=== PATIENT | female | born 1980 | race Caucasian/White ===

== ENCOUNTER → 2016-07-16 | Outpatient (CLI) | payer OTHER ==
[~2016-07-16] MED LIST: IBUP800 PO; OXYC-68 PO; PREN0.01; PRIL20TA2 PO
== END ==
LOC: HPND 09:54
PROVIDERS: ATTEND Obstetrics & Gynecology
DX: O09.522 Supervision of elderly multigravida, second trimester (principal); Z34.02 Encounter for supervision of normal first pregnancy, second trimester; Z36 Encounter for antenatal screening of mother; Z3A.18 18 weeks gestation of pregnancy
CPT/HCPCS: 76811

== ENCOUNTER 2016-11-21 09:08 | Inpatient (IN) | payer OTHER ==
[~2016-11-21] VITALS: Ht 162.6 cm; Wt 79.4 kg
[2016-12-09] VITALS (13 sets, daily range): BP systolic 98–122; BP diastolic 54–74; PULSE 59–96; RESP 16–18; TEMP 97.5–98.5; O2SAT 95–98
[2016-12-09 06:22] LABS: AUTOMATED NEUTROPHIL # 7.1 TH/MM3 (1.8-7.7); BASOPHIL % 0.2 % (0.0-2.0); EOSINOPHIL # 0.1 TH/MM3 (0-0.4); EOSINOPHIL % 0.9 % (0.0-4.0); HEMATOCRIT 32.2 % (35.0-46.0); HEMO FLAGS DIFF FINAL; LYMPH % 21.4 % (9.0-44.0); LYMPHOCYTE # 2.2 TH/MM3 (1.0-4.8); MEAN CELL VOLUME 86.2 FL (80.0-100.0); MEAN CORPUSCULAR HEMOGLOBIN 28.5 PG (27.0-34.0); MONO % 8.3 % (0.0-8.0); NEUT % 69.2 % (16.0-70.0); PLATELET COUNT 258 TH/MM3 (150-450); RED BLOOD COUNT 3.74 MIL/MM3 (4.00-5.30); RED CELL DISTRIBUTION WIDTH 16.5 % (11.6-17.2); WHITE BLOOD COUNT 10.2 TH/MM3 (4.0-11.0)
[2016-12-09 06:43] LABS: BACTERIA, URINE RARE /hpf; BLOOD, URINE NEG (NEG); COMMENT (UR) CULT NOT INDICATED; CULTURE IF INDICATED CULT NOT INDICATED; GLUCOSE,URINE NEG (NEG); KETONE, URINE NEG (NEG); MUCUS URINE FEW /lpf (OCC); NITRITE,URINE NEG (NEG); SQUAMOUS EPITHELIAL CELL URINE 4 /hpf (0-5); URINE COLOR YELLOW (YELLW/STRAW)
[2016-12-09] MEDS ORDERED: ONDANSETRON HCL 4 MG/2 ML VIAL ONE (06:43)
[2016-12-09] MEDS ORDERED: KETOROLAC TROMETHAMINE 30 MG/ML (IVP) VIAL ONE (06:43)
[2016-12-09] MEDS ORDERED: OXYTOCIN 10 UNIT/ML AMP ONE (06:44)
[2016-12-09] MEDS ORDERED: CITRIC ACID-SODIUM CITRATE LIQ 30 ML UDC PO SCH (06:45)
[2016-12-09] MEDS ORDERED: LACTATED RINGER'S 1000 ML IV ONE (06:45)
[2016-12-09] MEDS ORDERED: ceFAZolin 1,000 MG/NS 100 ML IV SCH ×2 (06:45)
[2016-12-09] MEDS ORDERED: LACTATED RINGER'S 1000 ML IV SCH (06:45)
--- NOTE | 2016-12-09 07:09 | HHI.HP ---
HPI Chief Complaint for repeat CS BTL at 39 weeks Date Seen: Dec 09, 2016 Time Seen: 07:00 Travel History International Travel<30 Days: No Contact w/Intl Traveler<30Days: No Known Affected Area: No History of Present Illness HPI 36 yo with good PNC had infertility TX and due 12/16 here for repeat CS Para: 1 : 2 Last Menstrual Period: Dec 09, 2016 History Past Medical History Narrative Medical PCOS Obstetric History Obstetric History CS x1 Past Surgical History Narrative Surgical appendectomy Family History Family History: Negative Social History Alcohol Use: No Tobacco Use: No Substance Abuse: No Allergies-Medications (Allergen,Severity, Reaction): Coded Allergies: No Known Allergies (Verified , 12/09/16) Home Meds Reported Medications Multivit/Min/Fol Ac/Iron/Pren ( Vit ( Plus)) Tab 01/16/07 Discontinued Reported Medications Oxycodone W/ Acetaminophen (Oxycodone/Acetaminophen)Oxycodone 5/325 Acetaminophen Tab1-2 Tab PO Q8 PRN (PAIN) #30 TAB 12/27/13 Ibuprofen (Motrin 800 Mg Tab)800 Mg [id number] Mg PO Q8H PRN (PAIN) 12/27/13 Omeprazole Magnesium (Prilosec Otc)20 Mg Tab20 Mg PO DAILY 12/24/13 Review of Systems Except as stated in HPI: all other systems reviewed are Neg Physical Exam Vital Signs Date Time Temp Pulse Resp B/P Pulse Ox O2 Delivery O2 Flow Rate FiO2 12/09/16 06:10 95 12/09/16 06:05 91 12/09/16 05:49 91 115/74 Narrative GENERAL: Well-nourished, well-developed patient. SKIN: Warm and dry. HEAD: Normocephalic and atraumatic. EYES: No scleral icterus. No injection or drainage. ENT: No nasal drainage noted. Mucous membranes pink. Airway patent. NECK: Supple, trachea midline. No JVD. CARDIOVASCULAR: Regular rate and rhythm without murmurs, gallops, or rubs. RESPIRATORY: Breath sounds equal bilaterally. No accessory muscle use. BREASTS: Bilateral exam showed no masses , no retractions, no nipple discharge. ABDOMEN/GI: Abdomen soft, non-tender, bowel sounds present, no rebound, no guarding Gravid to [-] weeks size Fundal Height: [-] GENITOURINARY: External Genitalia: intact and normal in appearance BUS glands: [-] Cervix: [-] Dilatation: [-] Effacement: [-] Station: [-] Presentation: [-] Membranes: [intact or ruptured] Uterine Contractions: [-] FHT's: Category: [-] Baseline: [-] Reactive: [-] Variability: [-] Decels: [-] EXTREMITIES: No cyanosis or edema. BACK: Nontender without obvious deformity. No CVA tenderness. NEUROLOGICAL: Awake and alert. Motor and sensory grossly within normal limits. Five out of 5 muscle strength in all muscle groups. Normal speech. Data Data Vital Signs Reviewed: Yes Orders Code Status (12/09/16 05:43) Vital Signs (Adult) .ON ADMISSION (12/09/16 05:43) Activity Oob Ad Adrienne (12/09/16 05:43) Heart (12/09/16 05:43) Urinary Catheter Management SRAVANI.Q8H (12/09/16 05:43) ^ Preps (12/09/16 05:43) Scd / Lance / Foot Pump SRAVANI.QSHIFT (12/09/16 05:43) ^ Ultrasound For Locatio (12/09/16 05:43) Diet Npo (12/09/16 Breakfast) Type And Screen (12/09/16 05:43) Complete Blood Count With Diff (12/09/16 05:43) Urinalysis - C+S If Indicated (12/09/16 05:43) Specimen To Be Collected PRN (12/09/16 05:43) Lactated Ringer's 1000 Ml Inj (Lr 1000 M (12/09/16 06:45) Lactated Ringer's 1000 Ml Inj (Lr 1000 M (12/09/16 06:45) Citric Acid-Sodium Citrate Liq (Bicitra (12/09/16 06:45) Cefazolin Inj (Ancef Inj) (12/09/16 06:45) Ketorolac Inj (Toradol Inj) (12/09/16 06:43) Ondansetron Inj (Zofran Inj) (12/09/16 06:43) Oxytocin Inj (Pitocin Inj) (12/09/16 06:44) Labs Laboratory Tests Test 12/09/16 06:00 White Blood Count 10.2 Red Blood Count 3.74 Hemoglobin 10.7 Hematocrit 32.2 Mean Corpuscular Volume 86.2 Mean Corpuscular Hemoglobin 28.5 Mean Corpuscular Hemoglobin 33.0 Concent Red Cell Distribution Width 16.5 Platelet Count 258 Mean Platelet Volume 8.0 Neutrophils (%) (Auto) 69.2 Lymphocytes (%) (Auto) 21.4 Monocytes (%) (Auto) 8.3 Eosinophils (%) (Auto) 0.9 Basophils (%) (Auto) 0.2 Neutrophils # (Auto) 7.1 Lymphocytes # (Auto) 2.2 Monocytes # (Auto) 0.9 Eosinophils # (Auto) 0.1 Basophils # (Auto) 0.0 CBC Comment DIFF FINAL Differential Comment Urine Color YELLOW Urine Turbidity CLEAR Urine pH 7.0 Urine Specific [place] 1.009 Urine Protein NEG Urine Glucose (UA) NEG Urine Ketones NEG Urine Occult Blood NEG Urine Nitrite NEG Urine Bilirubin NEG Urine Urobilinogen LESS THAN 2.0 Urine Leukocyte Esterase NEG Urine RBC LESS THAN 1 Urine WBC 1 Urine Squamous Epithelial 4 Cells Urine Bacteria RARE Urine Mucus FEW Microscopic Urinalysis Comment CULT NOT INDICATED Blood Type A POSITIVE Antibody Screen NEGATIVE Assessment/Plan Problem List: (1) 39 weeks gestation of (2) Encounter for female sterilization procedure Plan: for CS and BTL Ranjith Zaragoza MD Dec 09, 2016 07:09
--- NOTE | 2016-12-09 08:20 | PD.OB.DELI ---
Procedure Note Section Procedure Pre Op Diagnosis: (1) 39 weeks gestation of (2) Encounter for female sterilization procedure (3) delivery delivered Post Op Diagnosis: (1) delivery delivered Performed by Ranjith Zaragoza Procedure: Repeat Low Transverse Sec, Other (BTL) Indication for delivery: Desired elective repeat Informed consent obtained: For anesthesia, For procedure Confirmed correct: Patient, Procedure, Time-out taken Anesthesia: Spinal Monitoring during procedure: Blood pressure monitoring Urinary catheter: Inserted using sterile technique, To dependent drainage Sterile preparation: Duraprep Operative Features Skin Incision: Pfannenstiel Uterine Incision: Low transverse w/knife / blunt ext Membranes Ruptured: Artificially Presentation: Occiput anterior Delivery of infant: Uneventful : Male, Single One Minute : 8 Five Minute : 9 Weight: 8# 13 oz Status of : Viable Placenta delivered: Intact Medications: Antibiotics Estimated blood loss: 500 Procedure tolerated: Well Maternal Condition: Stable Condition: Stable Ranjith Zaragoza MD Dec 09, 2016 08:20
[2016-12-09] MEDS ORDERED: MORPHINE SULFATE PF 5 MG/10 ML VIAL ONE (08:21)
[2016-12-09] MEDS ORDERED: SODIUM CHLORIDE 0.9% FLUSH 10 ML FLUSH IV FLUSH PRN (08:30)
[2016-12-09] MEDS ORDERED: OXYTOCIN 30 UNITS-500ML PREMIX 500 ML IV ONE (08:30)
[2016-12-09] MEDS ORDERED: SIMETHICONE 80 MG CHEWABLE TAB PO PRN (08:30)
[2016-12-09] MEDS ORDERED: KETOROLAC TROMETHAMINE 60 MG/2 ML (IM) VIAL IM PRN (08:30)
[2016-12-09] MEDS ORDERED: oxyCODONE/ACETAMINOPHEN 5 MG/325 MG TAB PO PRN (08:30)
[2016-12-09] MEDS ORDERED: OXYTOCIN 30 UNITS-500ML PREMIX 500 ML ONE (08:32)
[2016-12-09] MEDS ORDERED: SODIUM CHLORIDE 0.9% FLUSH 10 ML FLUSH IV FLUSH SCH (09:00)
[2016-12-09] MEDS ORDERED: EPIDURAL-DIPHENHYDRAMINE HCL 50 MG/ML VIAL IV PUSH PRN (10:15)
[2016-12-09] MEDS ORDERED: EPIDURAL-DO NOT ADMINISTER ANTICOAGULANTS PRN (10:15)
[2016-12-09] MEDS ORDERED: EPIDURAL-NALOXONE HCL 0.4 MG/ML AMP IV PRN (10:15)
[2016-12-09] MEDS ORDERED: EPIDURAL-NO SYSTEMIC NARCOTICS PRN (10:15)
[2016-12-09] MEDS ORDERED: EPIDURAL-DIPHENHYDRAMINE HCL 50 MG CAP PO PRN (10:15)
[2016-12-09] MEDS: METHYLERGONOVINE MALEATE 0.2 MG/ML VIAL IM ONE (10:15)
--- NOTE | 2016-12-09 10:20 | MP ---
cc: JHONNY ZARAGOZA M.D. DATE OF SURGERY: 12/09/2016 PROCEDURE 1. Repeat low transverse section. 2. Bilateral tubal ligation. PREOPERATIVE DIAGNOSIS 1. Desires permanent sterilization. 2. section x2. 3. 39 weeks gestation. POSTOPERATIVE DIAGNOSIS 1. Desires permanent sterilization. 2. section x2. 3. [address] Jhonny Zaragoza ESTIMATED BLOOD LOSS 500 cc FINDINGS Live male , Apgars 8 and 9, 8 pounds 13 ounces. PROCEDURE IN DETAIL After informed consent the patient was taken to the operating room where she was placed under spinal anesthesia, placed in supine position with left lateral tilt. The abdomen, perineum and vagina were prepped and draped in normal sterile fashion. A Ty catheter was placed to gravity. After adequate anesthesia was assured and a timeout was taken, a Pfannenstiel skin incision was carried sharply through the skin to the fascia. The fascia was nicked in the midline. The incision was extended laterally using Herrera scissors. The rectus muscle was dissected off the fascia with sharp and blunt dissection. The rectus muscle was . The peritoneum was entered bluntly with a finger. The incision was extended laterally using blunt traction. The uterus was noted to be midline. A bladder flap was created by dissecting the bladder off the lower uterine segment. A low transverse uterine incision was then made and carried sharply through the uterine cavity. Clear fluid was noted. The incision was extended laterally using blunt traction. A hand was placed in the uterus. The 's head was guided through the incision using fundal pressure. The 's head readily delivered. The nose and mouth were suctioned well after the was delivered. 45 seconds was delayed and then the cord was clamped and cut and the handed to pediatrics in attendance. Cord blood was collected. The placenta was delivered manually. The uterus was exteriorized and wiped free from all remaining products of conception. The uterine incision was then closed with a running locking stitch of chromic suture. Good hemostasis was achieved. Both fallopian tubes were tied bilaterally using a Rc fashion ligature. This was done without difficulty. A 1 cm segment of each loop was excised to be sent to pathology. The uterus was placed back in the abdomen and noted to be hemostatic. The peritoneum was closed with chromic suture. The fascia was closed with Vicryl suture and the skin was closed with a subcuticular stitch. Each layer was noted to be hemostatic prior to closure. The patient tolerated the procedure well. MD NICOLE Meza/JG /8:27 AM /10:15 AM
[2016-12-09] MEDS ORDERED: ONDANSETRON HCL 4 MG/2 ML VIAL IV PUSH PRN (12:15)
[2016-12-09] MEDS ORDERED: LACTATED RINGER'S 1000 ML INJ 1,000 ML IV SCH (13:17)
[2016-12-09] MEDS ORDERED: PROMETHAZINE HCL 25 MG SUPP RECTAL ONE (15:45)
[2016-12-09] MEDS: METHYLERGONOVINE MALEATE 0.2 MG TAB PO SCH (18:10)
[2016-12-09] MEDS ORDERED: OXYTOCIN 30 UNITS-500ML PREMIX 500 ML IV PRN (18:30)
[2016-12-10 00:15] VITALS: BP 109/65; PULSE 65; RESP 14; TEMP 98.3
[2016-12-10] MEDS: METHYLERGONOVINE MALEATE 0.2 MG TAB PO SCH ×3 (02:11→17:33)
[2016-12-10] MEDS: oxyCODONE/ACETAMINOPHEN 5 MG/325 MG TAB PO PRN ×4 (03:18→23:45)
[2016-12-10] MEDS: IBUPROFEN 600 MG TAB PO PRN ×4 (03:18→23:45)
[2016-12-10 04:15] VITALS: BP 106/61; PULSE 66; RESP 14; TEMP 98.3
[2016-12-10 06:16] LABS: AUTOMATED NEUTROPHIL # 9.9 TH/MM3 (1.8-7.7); BASOPHIL % 0.2 % (0.0-2.0); EOSINOPHIL % 0.3 % (0.0-4.0); HEMATOCRIT 32.4 % (35.0-46.0); HEMO FLAGS DIFF FINAL; LYMPH % 12.6 % (9.0-44.0); LYMPHOCYTE # 1.6 TH/MM3 (1.0-4.8); MEAN CELL VOLUME 86.3 FL (80.0-100.0); MEAN CORPUSCULAR HEMOGLOBIN 28.7 PG (27.0-34.0); MEAN CORPUSCULAR HGB CONC 33.2 % (32.0-36.0); MONO % 8.5 % (0.0-8.0); NEUT % 78.4 % (16.0-70.0); PLATELET COUNT 213 TH/MM3 (150-450); RED BLOOD COUNT 3.76 MIL/MM3 (4.00-5.30); RED CELL DISTRIBUTION WIDTH 16.4 % (11.6-17.2); WHITE BLOOD COUNT 12.6 TH/MM3 (4.0-11.0)
[2016-12-10 07:35] VITALS: BP 112/71; PULSE 72; RESP 18; TEMP 89
--- NOTE | 2016-12-10 09:35 | HHI.OB ---
Subjective Post Day: 1 Remarks doing well no problems, no more nausea Objective Vitals/I&O Vital Signs Date Time Temp Pulse Resp B/P Pulse Ox O2 Delivery O2 Flow Rate FiO2 12/10/16 07:35 89.0 72 18 112/71 12/10/16 04:15 98.3 66 14 106/61 12/10/16 00:15 98.3 65 14 109/65 12/09/16 19:40 98.5 12/09/16 19:40 66 16 104/60 12/09/16 18:13 73 18 103/69 12/09/16 14:25 97.5 59 18 115/70 12/09/16 10:35 97.7 70 18 122/69 Objective Remarks GENERAL: Well-nourished, well-developed patient. ABDOMEN/GI: Abdomen soft, non-tender. Fundus: Firm, non-tender at umbilicus. GENITOURINARY: Light to moderate bleeding. EXTREMITIES: No cyanosis or edema, non-tender, without signs of DVT. Medications and IVs Current Medications Medications (Trade) Dose Ordered Sig/Lynn Route Start Time Stop Time Status Last Admin (Lr 1000 ml Inj) 1,000 ml @ 150 mls/hr Q6H40M IV 12/09/16 06:45 12/09/16 07:09 (NS Flush) 2 ml BID IV FLUSH 12/09/16 09:00 (NS Flush) 2 ml UNSCH PRN IV FLUSH 12/09/16 08:30 (Mylicon Chew) 80 mg QID PRN PO 12/09/16 08:30 (Motrin) 600 mg Q6H PRN PO 12/09/16 08:30 12/10/16 03:18 (Percocet 5-325 Mg) 1 tab Q4H PRN PO 12/09/16 08:30 12/10/16 03:18 (Percocet 5-325 Mg) 2 tab Q4H PRN PO 12/09/16 08:30 (M-M-R Ii Inj) 0.5 ml ONCE ONCE SQ 12/10/16 16:00 12/10/16 16:01 (Boostrix Inj) 0.5 ml ONCE ONCE IM 12/10/16 16:00 12/10/16 16:01 (Methergine) 0.2 mg Q8H PO 12/09/16 18:00 12/10/16 02:11 Miscellaneous Information NO SYSTEMIC NARCOTICS TO BE GIVEN FO... UNSCH PRN .XX 12/09/16 10:15 12/10/16 10:14 (Narcan Inj) 0.4 mg UNSCH PRN IV 12/09/16 10:15 12/10/16 10:14 (Benadryl Inj) 25 mg Q6H PRN IV PUSH 12/09/16 10:15 12/10/16 10:14 (Benadryl) 50 mg Q6H PRN PO 12/09/16 10:15 12/10/16 10:14 Miscellaneous Information ALL NURSING DEPARTMENTS UNSCH PRN .XX 12/09/16 10:15 12/10/16 10:14 (Zofran Inj) 4 mg Q4H PRN IV PUSH 12/09/16 12:15 12/09/16 12:09 Assessment/Plan Problem List: (1) 39 weeks gestation of (2) Encounter for female sterilization procedure Plan: for CS and BTL Discharge Planning doing well dc in am Ranjith Zaragoza MD Dec 10, 2016 09:35
--- NOTE | 2016-12-10 09:36 | HHI.DCPOC ---
Discharge Care Plan Diagnosis: (1) delivery delivered Report Symptoms to Your Doctor -Temperature above 100.5 degrees -Redness, of incision or excessive or foul smelling drainage -Unusual pain or calf pain -Increased vaginal bleeding -Painful or difficulty urinating -Feelings of extreme sadness or anxiety after 2 weeks Goals to Promote Your Health * To prevent worsening of your condition and complications * To maintain your health at the optimal level Directions to Meet Your Goals Take your medications as prescribed Follow your dietary instruction Follow activity as directed Ensure plenty of rest for recovery Drink fluids for hydration Keep your appointments as scheduled Take your immunizations and boosters as scheduled If your symptoms worsen call your PCP, if no PCP go to Urgent Care Center or Emergency Room Smoking is Dangerous to Your Health. Avoid second hand smoke Call the 24-hour crisis hotline for domestic abuse at Ranjith Zaragoza MD Dec 10, 2016 09:36
[2016-12-10] MEDS ORDERED: DIPHTH/TETANUS/ACEL PERTUSSIS (BOOSTER) 0.5 ML VIAL/PFS IM ONE (16:00)
[2016-12-10] MEDS ORDERED: MEASLES, MUMPS, RUBELLA VACCINE 0.5 ML VIAL SQ ONE (16:00)
[2016-12-10 19:27] VITALS: BP 101/72; PULSE 64; RESP 16; TEMP 98.8
[2016-12-11] MEDS: METHYLERGONOVINE MALEATE 0.2 MG TAB PO SCH (02:40)
--- NOTE | 2016-12-11 07:29 | HHI.OB ---
Subjective Post Day: 2 Remarks doing well Objective Vitals/I&O Vital Signs Date Time Temp Pulse Resp B/P Pulse Ox O2 Delivery O2 Flow Rate FiO2 12/10/16 19:27 98.8 64 16 101/72 12/10/16 07:35 89.0 72 18 112/71 Objective Remarks GENERAL: Well-nourished, well-developed patient. ABDOMEN/GI: Abdomen soft, non-tender. Fundus: Firm, non-tender at umbilicus. GENITOURINARY: Light to moderate bleeding. EXTREMITIES: No cyanosis or edema, non-tender, without signs of DVT. Medications and IVs Current Medications Medications (Trade) Dose Ordered Sig/Lynn Route Start Time Stop Time Status Last Admin (Lr 1000 ml Inj) 1,000 ml @ 150 mls/hr Q6H40M IV 12/09/16 06:45 12/09/16 07:09 (NS Flush) 2 ml BID IV FLUSH 12/09/16 09:00 (NS Flush) 2 ml UNSCH PRN IV FLUSH 12/09/16 08:30 (Mylicon Chew) 80 mg QID PRN PO 12/09/16 08:30 (Motrin) 600 mg Q6H PRN PO 12/09/16 08:30 12/10/16 23:45 (Percocet 5-325 Mg) 1 tab Q4H PRN PO 12/09/16 08:30 12/10/16 23:45 (Percocet 5-325 Mg) 2 tab Q4H PRN PO 12/09/16 08:30 (Methergine) 0.2 mg Q8H PO 12/09/16 18:00 12/11/16 02:40 (Zofran Inj) 4 mg Q4H PRN IV PUSH 12/09/16 12:15 12/09/16 12:09 Assessment/Plan Problem List: (1) 39 weeks gestation of (2) Encounter for female sterilization procedure Plan: for CS and BTL Discharge Planning [facility] Ranjith Zaragoza MD Dec 11, 2016 07:29
--- NOTE | 2016-12-11 07:31 | HHI.DS ---
Admission Date Dec 09, 2016 at 05:31 Discharge Date: Dec 11, 2016 Admitting Diagnosis Diagnosis: (1) delivery delivered Diagnosis: Principal : Repeat : Male, Single Brief History 36 yo with good PNC had infertility TX and due 12/16 here for repeat CS Hospital Course doing well DC home Pt Condition on Discharge: Good Discharge Disposition: Discharge Home Discharge Instructions Diet Instructions: As Tolerated, No Restrictions Activities You Can Perform: Pelvic Rest Follow up Referrals: DRUG ROOM OPERATOR - 2 Weeks @ [facility] with Ranjith Zaragoza MD Continued Medications: Multivit/Min/Fol Ac/Iron/Pren ( Vit ( Plus)) Tab Ranjith Zaragoza MD Dec 11, 2016 07:31
[2016-12-11] MEDS ORDERED: OXYC1TAB63 PO (07:32)
[2016-12-11] MEDS: oxyCODONE/ACETAMINOPHEN 5 MG/325 MG TAB PO PRN (08:56)
[2016-12-11] MEDS: IBUPROFEN 600 MG TAB PO PRN (08:57)
[2016-12-11 09:05] VITALS: BP 124/81; PULSE 58; RESP 16; TEMP 98.1
== END 2016-12-11 12:39 | disposition home or self-care (01) | DRG 766 ==
LOC: H2EB 12-09 05:31 → H1EA 12-09 09:41
PROVIDERS: ADMIT Obstetrics & Gynecology; ATTEND Obstetrics & Gynecology
PROC: 10D00Z1 Extraction of Products of Conception, Low, Open Approach (ICD-10-PCS; principal; 2016-12-09)
PROC: 0UB70ZZ Excision of Bilateral Fallopian Tubes, Open Approach (ICD-10-PCS; 2016-12-09)
DX: O34.219 Maternal care for unspecified type scar from previous cesarean delivery (principal); Z30.2 Encounter for sterilization; Z3A.39 39 weeks gestation of pregnancy; Z37.0 Single live birth
CPT/HCPCS: 59025; 81001; 85025; 86850; 86900; 86901; 88302; 90715; J0690; J1885; J2210; J2274; J2405; J2590; J7120

== ENCOUNTER 2017-11-12 13:49 | Emergency (ER) | payer OTHER ==
[~2017-11-12] VITALS: Ht 162.6 cm; Wt 75.0 kg
[~2017-11-12 13:49] MED LIST changes: -IBUP800 PO; -OXYC-68 PO; +OXYC1TAB63 PO; -PRIL20TA2 PO
[2017-11-12 14:00] VITALS: BP 127/72; PULSE 94; RESP 16; TEMP 98.7; O2SAT 98
[2017-11-12] MEDS ORDERED: IBUPROFEN 800 MG TAB PO ONE (15:00)
[2017-11-12] MEDS ORDERED: IBUPROFEN 800 MG TAB ONE (15:00)
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
[2017-11-12] MEDS ORDERED: IBUP1TAB7 PO (16:14)
[2017-11-12] MEDS ORDERED: ROBA500T PO (16:14)
== END 2017-11-12 16:28 | disposition home or self-care (01) ==
LOC: NEPK 13:49
DX: S00.83XA Contusion of other part of head, initial encounter (principal); S89.92XA Unspecified injury of left lower leg, initial encounter; V89.2XXA Person injured in unspecified motor-vehicle accident, traffic, initial encounter
CPT/HCPCS: 73564; 99283